=== PATIENT | female | born 1975 | race Caucasian/White ===

== ENCOUNTER 2020-08-27 19:57 | Emergency (ER) | payer OTHER, BC ==
[2020-08-27] MEDS ORDERED: Lidocaine 1% (PF) 30 ML VIAL ONE (20:19)
[2020-08-27] MEDS ORDERED: Boostrix 0.5 ML (Tdap) VIAL ONE (20:19)
[2020-08-27] MEDS ORDERED: Ketorolac Tromethamine 30 MG/ML VIAL ONE (20:19)
== END 2020-08-27 20:18 | disposition home or self-care (01) ==
LOC: ERS 19:57
DX: S02.5XXA Fracture of tooth (traumatic), initial encounter for closed fracture (principal); S01.511A Laceration without foreign body of lip, initial encounter; I10 Essential (primary) hypertension; V86.99XA Unspecified occupant of other special all-terrain or other off-road motor vehicle injured in nontraffic accident, initial encounter
CPT/HCPCS: 40652; 70450; 70486; 72125; 90471; 90715; 96372; J1885; J2001